=== PATIENT | female | born 1990 ===

== ENCOUNTER 2017-07-07 15:00 | Emergency (ER) | payer OTHER ==
[2017-07-07 15:12] VITALS: RESP 18
[2017-07-07] MEDS ORDERED: Sodium Chloride 0.9% 1,000 ML IV STA (15:44)
--- NOTE | 2017-07-07 16:10 | ED PDOC ---
HPI: Chest Pain Time Seen by Provider: 07/07/17 15:16 Chief Complaint (Nursing): Chest Pain Chief Complaint (Provider): Chest Pain History Per: Patient History/Exam Limitations: no limitations Onset/Duration Of Symptoms: Other (x last night) Current Symptoms Are (Timing): Still Present Exacerbating Factors: Exertion (Walking), Other (Talking) Additional Complaint(s): Ms. Toure is a 27 year old female who presents to the ED for chest pain that started around 23:00 last night while at rest. Initially started out as sharp Right-sided pain. Persistent throughout the evening. Patient reports she woke up this morning with generalized chest pressure associated with episodes of shortness of breath and lightheadedness. Patient reports worsen when walking or talking. Denies any leg swelling. Patient denies smoking. Patient states she takes pills. Denies recent immobilizations or surgeries. Patient reports she did fly from [place] yesterday. Denies long airplane flights. No family history of blood clots or cardiac disease. PMD: Jeison Ackerman Past Medical History Reviewed: Historical Data, Nursing Documentation, Vital Signs Vital Signs: Last Vital Signs Temp 98.4 F 07/07/17 15:09 Pulse 88 07/07/17 16:53 Resp 18 07/07/17 15:09 BP 108/76 07/07/17 15:09 Pulse Ox 97 07/07/17 16:53 - Medical History Other PMH: left knee arthritis - Surgical History Other surgeries: Breast reduction, right breast lumpectomy, left knee - Family History Family History: States: No Known Family Hx Other Family History: (-): family history of blood clots or cardiac disease - Social History Current smoker - smoking cessation education provided: No Alcohol: Occasional (drinks less than once every 2-3 weeks ocassionally) Drugs: Denies - Immunization History Hx Tetanus Toxoid Vaccination: No Hx Influenza Vaccination: No Hx Pneumococcal Vaccination: No - Allergies Allergies/Adverse Reactions: Allergies Allergy/AdvReac Type Severity Reaction Status Date / Time Penicillins Allergy RASH Verified 07/07/17 15:09 Review of Systems ROS Statement: Except As Marked, All Systems Reviewed And Found Negative Cardiovascular: Positive for: Light Headedness, Other (Generalized chest pressure) Respiratory: Positive for: Shortness of Breath Musculoskeletal: Negative for: Other (leg swelling) Physical Exam - Reviewed Nursing Documentation Reviewed: Yes Vital Signs Reviewed: Yes - Physical Exam Appears: Positive for: Non-toxic, No Acute Distress Head Exam: Positive for: ATRAUMATIC, NORMOCEPHALIC Skin: Positive for: Warm, Dry Eye Exam: Positive for: EOMI, PERRL ENT: Negative for: Pharyngeal Erythema, Tonsillar Exudate Neck: Positive for: Painless ROM, Supple Cardiovascular/Chest: Positive for: Regular Rate, Rhythm, Chest Non Tender. Negative for: Edema, Murmur Respiratory: Positive for: Normal Breath Sounds. Negative for: Rales, Rhonchi, Wheezing, Respiratory Distress Gastrointestinal/Abdominal: Positive for: Soft. Negative for: Tenderness, Mass , Distended, Guarding Back: Positive for: Normal Inspection. Negative for: Muscle Spasm Extremity: Positive for: Normal ROM. Negative for: Deformity Lymphatic: Negative for: Adenopathy Neurologic/Psych: Positive for: Alert. Negative for: Motor/Sensory Deficits - Laboratory Results Result Diagrams: 07/07/17 16:00 07/07/17 16:00 Urine POC: Negative Urine dip results: Negative for: Nitrate, Ketones, Glucose, Bilirubin, Protein - ECG ECG: Positive for: Interpreted By Me, Viewed By Me ECG Rhythm: Positive for: Sinus Rhythm (Normal) Rate: 88 O2 Sat by Pulse Oximetry: 97 (RA) Pulse Ox Interpretation: Normal Medical Decision Making Medical Decision Making: Time: 15:42 Impressions: Chest Pain, Shortness of Breath Differentials include, but not limited to: Pulmonary Embolism, Pneumothorax, Costochondritis, Reflux Plan: - EKG - CMP - Magnesium - Phosphorous - TSH - Troponin I - ED Urine - ED Urine Dipstick - CBC - D-Dimer - Chest X-Ray - Sodium Chloride 0.9% 1,000 ml IV 1,000 mls/hr Time: 16:42 Chest X-Ray FINDINGS: LUNGS: No active pulmonary disease. PLEURA: No significant pleural effusion identified. No pneumothorax apparent. CARDIOVASCULAR: Normal. OSSEOUS STRUCTURES: No significant abnormalities. VISUALIZED UPPER ABDOMEN: Normal. OTHER FINDINGS: None. IMPRESSION: No active disease. Labs unremarkable. DW pt findings and plan of care. STable for discharge. Scribe Attestation: Documented by Harish Alfaro, acting as a scribe for Rachana Chow MD Provider Scribe Attestation: All medical record entries made by the Scribe were at my direction and personally dictated by me. I have reviewed the chart and agree that the record accurately reflects my personal performance of the history, physical exam, medical decision making, and the department course for this patient. I have also personally directed, reviewed, and agree with the discharge instructions and disposition. Disposition - Clinical Impression Clinical Impression: Chest pain, Near syncope Counseled Patient/Family Regarding: Studies Performed, Diagnosis, Need For Followup - Disposition Referrals: [facility] [Outside] [facility] [Outside] ([employer] WILL CONTACT YOU TO ASSIST WILL FOLLOW UP APPOINTMENTS) Disposition: Routine/Home Disposition Time: 16:45 Condition: GOOD Additional Instructions: DRINK PLENTY OF HYDRATING FLUIDS AND EAT AT LEAST 3 WELL-BALANCED MEALS A DAY FOLLOW UP WITH PMD OR [facility] IN 24-48 HOURS FOR REEVALUATION AND FURTHER MANAGEMENT. RETURN TO ER FOR WORSENING SYMPTOMS Instructions: Near Fainting, Chest Pain (DC) Forms: [employer] (Mongolian)
[2017-07-07 16:14] LABS: CALCIUM 9.7 mg/dL (8.4-10.2); GFR AFRICAN-AMERICAN > 60; GFR NON-AFRICAN AMERICAN > 60
[2017-07-07 16:15] LABS: BASO # 0.1 K/uL (0.0-0.2); BASO % 0.7 % (0.0-2.0); EOS # 0.1 K/uL (0.0-0.7); EOS % 1.3 % (0.0-4.0); HEMOGLOBIN 12.8 g/dL (12.0-16.0); LYMPH # 2.7 K/uL (1.0-4.3); LYMPH % 35.9 % (20.0-40.0); MEAN CORPUSCULAR HEMOGLOBIN 30.4 pg (27.0-31.0); MEAN CORPUSCULAR HGB CONC 34.2 g/dL (33.0-37.0); MEAN PLATELET VOLUME 9.4 fl (7.2-11.7); MONO # 0.4 K/uL (0.0-0.8); NEUT # 4.2 K/uL (1.8-7.0); NEUT % 57.1 % (50.0-75.0); NRBC % 0.2 % (0.0-0.0); RBC 4.19 Mil/uL (3.80-5.20); RED CELL DISTRIBUTION WIDTH 13.4 % (11.5-14.5); WHITE BLOOD COUNT 7.4 K/uL (4.8-10.8)
[2017-07-07 16:18] LABS: ALB/GLOB RATIO 1.1 (1.0-2.1); ALBUMIN 4.1 g/dL (3.5-5.0); ALT/SGPT 32 U/L (9-52); AST/SGOT 40 U/L (14-36); BLOOD UREA NITROGEN 13 mg/dl (7-17)
[2017-07-07 16:24] LABS: SQUAMOUS EPITHIAL 5 /hpf (0-5); URINE BILIRUBIN NEGATIVE (NEGATIVE); URINE BLOOD SMALL (NEGATIVE); URINE CLARITY SLIGHTY-CLOUDY (Clear); URINE COLOR YELLOW (YELLOW); URINE GLUCOSE (UA) NEG (Normal); URINE LEUKOCYTE ESTERASE MOD Leu/uL (Negative); URINE PROTEIN NEGATIVE (NEGATIVE); URINE UROBILINOGEN 0.2-1.0 mg/dL (0.2-1.0)
--- NOTE | 2017-07-07 16:44 | RAD ---
HISTORY: CHEST PAIN COMPARISON: No prior. TECHNIQUE: Chest PA and lateral FINDINGS: LUNGS: No active pulmonary disease. PLEURA: No significant pleural effusion identified. No pneumothorax apparent. CARDIOVASCULAR: Normal. OSSEOUS STRUCTURES: No significant abnormalities. VISUALIZED UPPER ABDOMEN: Normal. OTHER FINDINGS: None. IMPRESSION: No active disease.
[2017-07-07 18:27] VITALS: BP 111/62; PULSE 82; TEMP 98; O2SAT 99
--- NOTE | 2017-07-09 00:04 | CARD ---
APPROVED REPORT EKG Measurement Heart [id number] <Conclusion> Normal sinus rhythm Normal ECG
== END 2017-07-07 17:45 | disposition home or self-care (01) ==
LOC: H.ER 15:00
DX: R07.89 Other chest pain (principal); R55 Syncope and collapse; Z88.0 Allergy status to penicillin
CPT/HCPCS: 71046; 80053; 81003; 81025; 83735; 84100; 84443; 84484; 85025; 85378; 93005; 96360; 99283; J7040